=== PATIENT | female | born 1995 | race Caucasian/White ===

== ENCOUNTER 2020-06-03 12:46 | Emergency (ER) | payer OTHER, SELFPAY ==
--- NOTE | ~2020-06-03 | XR_ITS ---
EXAMINATION: XR chest 1V portable EXAM DATE: 06/03/2020 13:59 INDICATION: Cough. TECHNIQUE: Portable AP frontal chest x-ray was obtained. There is no prior study for comparison. FINDINGS: The lungs are clear. There are no pleural effusions. The cardiomediastinal silhouette is within normal limits. There is no pneumothorax suspected. The bones and soft tissues are unremarkab le. IMPRESSION: No acute cardiopulmonary findings. Reviewed, dictated and finalized at location B.
[2020-06-03 12:58] VITALS: BP 138/77; PULSE 98; RESP 17; TEMP 36.2; O2SAT 100
--- NOTE | 2020-06-03 14:08 | ED.GENADULT ---
HPI - General Adult General Chief complaint: Upper Respiratory Infection Stated complaint: trouble breathing Time Seen by Provider: 06/03/20 12:52 Source: patient Mode of arrival: ambulatory Limitations: no limitations History of Present Illness HPI narrative: Patient is a 24-year-old female who presents with 3 days duration of upper respiratory symptoms with history of asthma noting cough with slight congestion rhinorrhea denies sick contacts fever chills nausea vomiting has been using her home nebulizer and asthma medications with some improvement patient on arrival in no distress Related Data Home Medications Medication Instructions Recorded Confirmed albuterol sulfate 2 puff INHALATION QID PRN 06/03/20 dextroamphetamine-amphetamine 20 mg PO DAILY 06/03/20 [Adderall] Allergies Allergy/AdvReac Type Severity Reaction Status Date / Time No Known Allergies Allergy Verified 06/03/20 12:57 Review of Systems Review of Systems: All systems reviewed & are unremarkable except as noted in HPI and below PMFSH Past Medical History Medical History (Updated 06/03/20 @ 14:15 by Olegario Gonogra PA-C) Asthma Social History Social History Gender identity (if verbalized by the patient): Female Exam Narrative: Exam Narrative: GENERAL: Well-appearing, well-nourished, and in no acute distress. HEAD: Normocephalic, atraumatic. EYES: PERRLA and EOMI. ENT: Nares clear, no rhinorrhea or epistaxis. Mucous membranes moist. Oropharynx without tonsillar hypertrophy exudate or other lesions. NECK: Supple. No adenopathy or masses. CHEST: Clear to auscultation. No respiratory distress. No wheezes rales or rhonchi HEART: Regular rate and rhythm. No murmur heard. Normal peripheral pulses. ABDOMEN: Soft, nontender, nondistended EXTREMITIES: Normal range of motion. No edema. SKIN: Warm, dry, no rash. NEURO: No focal deficits. Alert and oriented x3. Cranial nerves II through XII grossly intact PSYCH: Normal mood and affect. Course Course Emergency Course: Patient in the room in no distress no high risk changes in the imaging felt appropriate for discharge home normal vital signs COVID testing pending Vital Signs Vital signs: Vital Signs Temperature 97.1 F L 06/03/20 12:58 Pulse Rate 98 06/03/20 12:58 Respiratory Rate 17 06/03/20 12:58 Blood Pressure 138/77 06/03/20 12:58 Pulse Oximetry 100 06/03/20 12:58 Temperature 97.1 F L 06/03/20 12:58 Pulse Rate 98 06/03/20 12:58 Respiratory Rate 17 06/03/20 12:58 Blood Pressure 138/77 06/03/20 12:58 Pulse Oximetry 100 06/03/20 12:58 Medical Decision Making MDM Narrative Medical decision making narrative: Patient in the room in no distress aware of case findings treatment plan diagnosis felt appropriate for outpatient reevaluation given reasons to return normal vital signs no pneumonia Vital Signs Vital Signs: Vital Signs Temperature 97.1 F L 06/03/20 12:58 Pulse Rate 98 06/03/20 12:58 Respiratory Rate 17 06/03/20 12:58 Blood Pressure 138/77 06/03/20 12:58 Pulse Oximetry 100 06/03/20 12:58 Temperature 97.1 F L 06/03/20 12:58 Pulse Rate 98 06/03/20 12:58 Respiratory Rate 17 06/03/20 12:58 Blood Pressure 138/77 06/03/20 12:58 Pulse Oximetry 100 06/03/20 12:58 Discharge Plan Discharge Clinical Impression: Upper respiratory infection Patient Disposition: Home, Self-Care Condition: Stable Instructions: Antibiotic Form, Upper Respiratory Infection (ED) Additional Instructions: Follow up with your primary care provider within 1-2 days to set up for reevaluation your COVID-19 test results. Go to ER for shortness of breath, difficulty breathing, chest pain, fever/chills, weakness, nauseau/vomitting, etc. or any other concerns. Self quarantine until you have received your COVID-19 results Take any prescribed medications as directed.
[2020-06-03] MEDS: predniSONE 20 MG TABLET 60 MG PO (14:10)
[2020-06-04 14:17] LABS: SARS-CoV-2 RNA PCR Negative
== END 2020-06-03 14:45 | disposition home or self-care (01) ==
PROVIDERS: Emergency Medicine Emergency Medical Services; Emergency Provider Emergency Medicine
DX: J06.9 Acute upper respiratory infection, unspecified (principal); J45.909 Unspecified asthma, uncomplicated; Z20.828 Contact with and (suspected) exposure to other viral communicable diseases
CPT/HCPCS: 71045; 87635; 99283; C9803; J7512; U0003

== ENCOUNTER 2020-11-05 16:18 | Emergency (ER) | payer OTHER, SELFPAY ==
[2020-11-05 17:30] VITALS: BP 127/100; PULSE 74; RESP 20; TEMP 35.7; O2SAT 100
--- NOTE | 2020-11-05 18:07 | PC.NURSE ---
. pt does not want to wait any longer. encourged to return for further problems. able to talk complete sentences.
== END 2020-11-05 20:20 | disposition left against medical advice (07) ==
LOC: ANHED 20:00
DX: J45.909 Unspecified asthma, uncomplicated (principal)
CPT/HCPCS: 99199

== ENCOUNTER 2020-11-05 18:24 | Emergency (ER) | payer OTHER, SELFPAY ==
[2020-11-05 18:42] VITALS: BP 133/98; PULSE 90; RESP 18; TEMP 36.5; O2SAT 100
--- NOTE | 2020-11-05 18:54 | ED.URI ---
HPI - URI/Sore Throat General Chief Complaint: Upper Respiratory Infection Stated Complaint: Cough,Headache Time Seen by Provider: 11/05/20 18:47 Source: patient and RN notes reviewed Mode of arrival: ambulatory Limitations: no limitations History of Present Illness HPI Narrative: Patient presents today complaining of a dry cough and headache since yesterday. History of asthma. Denies any additional symptoms to include fever, chills or sweats, body aches, shortness of breath or wheezing, sore throat or ear pain, loss of taste or smell. Denies any sick contacts. She has been using her inhaler and breathing treatments at home with very short-term relief. MD elicited complaint: cough Related Data Home Medications Medication Instructions Recorded Confirmed albuterol sulfate 2 puff INHALATION QID PRN 06/03/20 dextroamphetamine-amphetamine 20 mg PO DAILY 06/03/20 [Adderall] L norgest/e.estradiol-e.estrad 11/05/20 [Simpesse] fluticasone propionate [Flovent INHALATION 11/05/20 HFA] Allergies Allergy/AdvReac Type Severity Reaction Status Date / Time No Known Allergies Allergy Verified 06/03/20 12:57 Review of Systems Review of Systems: Narrative: CONSTITUTIONAL: Denies body aches, fever, chills, or sweats. EYES: Denies visual changes, redness, or discharge. ENT: Denies rhinorrhea, congestion, sore throat, or otalgia. CARDIOVASCULAR: Denies chest pain, palpitations, or edema. RESPIRATORY: + Cough. Denies shortness of breath or wheezing GASTROINTESTINAL: Denies abdominal pain, nausea, vomiting, or diarrhea. GENITOURINARY: Denies dysuria or hematuria. SKIN: Denies rash, itching, or wounds. MUSCULOSKELETAL: Denies back pain, joint pain, or myalgia. NEUROLOGIC: Denies numbness, tingling, or weakness. + Headache PSYCH: Denies depression or anxiety. [facility] Past Medical History Medical History (Updated 11/05/20 @ 19:35 by Carissa Cheney, [employer]ARD SUPERVIS[employer], ) Asthma Social History Social History Gender identity (if verbalized by the patient): Female Comments At time of signature, I have reviewed and agree with nursing past medical, surgical, social and family history unless otherwise noted. Please see nursing chart for further information. There is no relevant family history pertinent to the presenting complaint Exam Narrative: Exam Narrative: GENERAL: Well-appearing, well-nourished, and in no acute distress. HEAD: Normocephalic, atraumatic. EYES: EOMI. No redness or drainage. Conjunctivae normal. ENT: Mucous membranes pink and moist. Nares clear. No rhinorrhea. TMs normal bilaterally. Throat normal. Uvula midline. NECK: Normal AROM. Supple. No lymphadenopathy. CHEST: No respiratory distress. Clear to auscultation, but with somewhat decreased aeration throughout. HEART: Regular rate and rhythm. No murmur appreciated. Normal peripheral pulses. EXTREMITIES: Normal range of motion. No edema. SKIN: Warm, dry, no rash. Capillary refill normal. Normal skin turgor. NEURO: No focal deficits. Alert and oriented x3. Gait steady. PSYCH: Normal affect. No signs of depression or anxiety. Course Course Emergency Course: 1934- Patient states she feels better after Duoneb. Increased aeration noted upon repeat auscultation. Vital Signs Vital signs: Vital Signs Temperature 97.7 F 11/05/20 18:42 Pulse Rate 90 11/05/20 18:42 Respiratory Rate 18 11/05/20 18:42 Blood Pressure 133/98 H 11/05/20 18:42 Pulse Oximetry 100 11/05/20 18:42 Temperature 97.7 F 11/05/20 18:42 Pulse Rate 94 11/05/20 19:32 Respiratory Rate 16 11/05/20 19:32 Blood Pressure 133/98 H 11/05/20 18:42 Pulse Oximetry 96 11/05/20 19:32 Reviewed. Pt has been instructed to follow up with her PCP regarding her elevated blood pressure today. MDM - URI/Sore Throat Differential Diagnosis Differential diagnosis: Likely upper respiratory infection, otitis media, si
[2020-11-05] MEDS: IPRATROPIUM BR 0.02% INH SOLN 0.5 MG/2.5 ML VIAL INHALATION (19:06)
[2020-11-05] MEDS: ALBUTEROL SULFATE NEB 2.5 MG/3 ML INH INHALATION (19:06)
[2020-11-05 19:32] VITALS: PULSE 94; RESP 16; O2SAT 96
== END 2020-11-05 19:40 | disposition home or self-care (01) ==
PROVIDERS: Emergency Provider Nurse Practitioner
DX: J45.901 Unspecified asthma with (acute) exacerbation (principal); F90.9 Attention-deficit hyperactivity disorder, unspecified type
CPT/HCPCS: 94640; 99213; G0463

== ENCOUNTER 2021-04-21 12:49 | Emergency (ER) | payer OTHER, SELFPAY ==
[2021-04-21 13:07] VITALS: BP 118/78; PULSE 100; RESP 18; TEMP 36.7; O2SAT 100
[2021-04-21 13:10] VITALS: BP 118/78; PULSE 100; RESP 18; TEMP 36.7; O2SAT 100
--- NOTE | 2021-04-21 13:53 | ED.ASTHMA ---
HPI - Asthma General Chief Complaint: Asthma Stated Complaint: Asthma Time Seen by Provider: 04/21/21 13:53 Source: patient and RN notes reviewed Mode of arrival: ambulatory Limitations: no limitations History of Present Illness HPI Narrative: 25-year-old female with history of asthma presents with concern for asthma exacerbation. Reports since Sunday she has been using her rescue inhaler every 4 hours and also needing to use her nebulizer. Reports at baseline when she has not feeling ill she does not use her rescue inhaler on a daily basis. Reports she recently started using a controller medicine. She denies fever, bodies, chills, sweats. Reports nasal congestion started today. She denies any known sick contacts. MD complaint: asthma attack Related Data Home Medications Medication Instructions Recorded Confirmed albuterol sulfate 2 puff INHALATION QID PRN 06/03/20 dextroamphetamine-amphetamine 20 mg PO DAILY 06/03/20 [Adderall] L norgest/e.estradiol-e.estrad 11/05/20 [Simpesse] Allergies Allergy/AdvReac Type Severity Reaction Status Date / Time No Known Allergies Allergy Verified 04/21/21 13:07 Review of Systems Review of Systems: CONSTITUTIONAL: Denies malaise, chills, sweats, or fever. EYES: Denies visual changes, redness, or discharge. ENT: Reports rhinorrhea, congestion. Denies sinus pain, otalgia and sore throat. CARDIOVASCULAR: Denies chest pain, palpitations, or edema. RESPIRATORY: Reports cough, wheezing. Denies dyspnea. GASTROINTESTINAL: Denies abdominal pain, nausea, vomiting, diarrhea SKIN: Denies rash or itching. MUSCULOSKELETAL: Denies myalgia. NEUROLOGIC: Denies headache. All systems reviewed & are unremarkable except as noted in HPI and below PMFSH Past Medical History Medical History (Updated 04/21/21 @ 14:02 by Renee Brown NP) Asthma Social History Social History Gender identity (if verbalized by the patient): Female Comments At time of signature, agree with nursing past medical, surgical, social and family history. There is no relevant family history pertinent to the presenting complaint Exam Narrative: GENERAL: Well-appearing, well-nourished, and in no acute distress. HEAD: Normocephalic EYES: PERRLA, conjunctivae clear ENT: Nares clear, clear discharge. Mucous membranes moist. NECK: Supple. No lymphadenopathy CHEST: Clear to auscultation, breath sounds equal. No wheezing, rhonchi, rales, or stridor. No respiratory distress, speaks in full sentences. HEART: Regular rate and rhythm. No murmur heard. SKIN: Warm, dry, no rash. NEURO: Alert and oriented x3. PSYCH: Normal mood and affect Course Course Emergency Course: Patient is aware of diagnosis, understands and agrees to treatment plan. Anticipatory guidance given. Patient agrees to follow-up as directed and is aware of reasons to seek care at the emergency department. Portions of this record may have been created with voice recognition software Vital Signs Vital signs: Vital Signs Temperature 98.0 F 04/21/21 13:07 Pulse Rate 100 04/21/21 13:07 Respiratory Rate 18 04/21/21 13:07 Blood Pressure 118/78 04/21/21 13:07 Pulse Oximetry 100 04/21/21 13:07 Temperature 98.0 F 04/21/21 13:10 Pulse Rate 100 04/21/21 13:10 Respiratory Rate 18 04/21/21 13:10 Blood Pressure 118/78 04/21/21 13:10 Pulse Oximetry 100 04/21/21 13:10 Reviewed. MDM - Asthma MDM Narrative Medical decision making narrative: Differential diagnosis considered:Nunez virus, strep pharyngitis, allergic rhinitis, upper respiratory tract infection, sinusitis, rhinosinusitis, nasopharyngitis. viral pharyngitis, otitis media, otitis externa, pneumonia, bronchitis, viral cough syndrome, viral syndrome, and influenza. Exam findings show no acute concerns or changes; patient is non-toxic appearing and is in no distress. Patient is appropriate for outpatient
== END 2021-04-21 14:00 | disposition home or self-care (01) ==
PROVIDERS: Emergency Provider Nurse Practitioner
DX: J45.21 Mild intermittent asthma with (acute) exacerbation (principal)
CPT/HCPCS: 99213; G0463

== ENCOUNTER 2021-09-06 08:33 | Emergency (ER) | payer OTHER, SELFPAY ==
[2021-09-06] VITALS (7 sets, daily range): BP systolic 124–146; BP diastolic 67–92; PULSE 86–130; RESP 14–31; TEMP 36.7–37.3; O2SAT 98–100
--- NOTE | ~2021-09-06 | XR_ITS ---
EXAMINATION: XR chest 2V DATE: 09/06/2021 10:33 INDICATION: Shortness of breath. TECHNIQUE: Frontal and lateral views of the chest were obtained. COMPARISON: Chest single view 06/03/2020 FINDINGS: The chest demonstrates clear lungs without pneumonia, pleural effusion, or pneumothorax. Th e heart size is normal. IMPRESSION: 1. No acute cardiopulmonary disease. Reviewed, dictated and finalized at location B. [employer]
--- NOTE | 2021-09-06 10:05 | ED.ASTHMA ---
HPI - Asthma General Chief Complaint: Asthma Stated Complaint: my asthma is flaring up Time Seen by Provider: 09/06/21 09:15 Source: patient Mode of arrival: ambulatory Limitations: no limitations History of Present Illness HPI Narrative: Patient is a 26-year-old female complaining of asthma attack , describes been coughing and wheezing since yesterday. Patient states that she does have asthma and takes a nebulizer and an inhaler at home for it but today did not work, still having constant cough and wheezing. Patient denies any chest pain, abdominal pain, nausea, vomiting, diarrhea, fever or chills. Related Data Home Medications Medication Instructions Recorded Confirmed albuterol sulfate 2 puff INHALATION QID PRN 06/03/20 09/06/21 dextroamphetamine-amphetamine 20 mg PO DAILY 06/03/20 09/06/21 [Adderall] L norgest/e.estradiol-e.estrad 0.15 tablet PO HS 11/05/20 09/06/21 [Simpesse] fluticasone propionate [Flovent 110 mcg INHALATION DAILY 09/06/21 09/06/21 HFA] Allergies Allergy/AdvReac Type Severity Reaction Status Date / Time No Known Allergies Allergy Verified 09/06/21 08:58 Review of Systems Review of Systems: All systems reviewed & are unremarkable except as noted in HPI and below Constitutional: Constitutional: Denies body ache(s), Denies chills, Denies excessive sweating, Denies fatigue, Denies fever(s), Denies headache(s), Denies lethargy, Denies malaise, Denies weakness and Denies weight loss Eyes: Eyes: Denies blurry vision, Denies change in vision and Denies loss of vision ENT: Denies dizziness, Denies ear discharge, Denies headache(s), Denies lip swelling, Denies epistaxis, Denies nasal congestion, Denies neck pain, Denies throat swelling and Denies tongue swelling Cardiovascular: Cardiovascular: Denies chest pain, Denies chest pain at rest, Denies chest pain with activity, Denies diaphoresis, Denies rapid heart rate, Denies edema, Denies irregular heart rhythm, Denies lightheadedness and Denies palpitations Respiratory: Respiratory: Denies chest congestion and Denies hemoptysis Gastrointestinal: Gastrointestinal: Denies abdominal pain, Denies melena, Denies hematochezia, Denies diarrhea, Denies nausea, Denies vomiting and Denies hematemesis Musculoskeletal: Musculoskeletal: Denies abnormal gait, Denies deformity, Denies joint swelling, Denies limited range of motion, Denies neck pain and Denies numbness Neurologic: Denies Abnormal speech present, Denies abnormal gait, Denies confusion, Denies dizziness, Denies headache(s), Denies focal weakness, Denies loss of vision, Denies numbness, Denies Other visual disturbances, Denies Sensory deficit (Neuro) and Denies weakness Psychiatric: Psychiatric: Denies confusion, Denies depression, Denies auditory hallucinations, Denies homicidal ideation and Denies suicidal ideation Endocrine: Endocrine: Denies cold intolerance, Denies excessive sweating, Denies fatigue, Denies heat intolerance and Denies palpitations Hematologic/Lymphatic: Hematologic/Lymphatic: Denies easy bleeding and Denies easy bruising Allergic/Immunologic: Allergic/Immunologic: Denies lip swelling, Denies throat swelling and Denies tongue swelling PMFSH Past Medical History Medical History Asthma Social History Social History Gender identity (if verbalized by the patient): Female Comments Family history: None Social history: Non-smoker no EtOH or drug use Exam Const: General: cooperative, healthy appearing, comfortable, no acute distress, well developed, alert and awake; No confusion Orientation/consciousness: oriented to person, oriented to place, oriented to time, patient oriented x3 and No confusion Limitations: no limitations HENMT: Head: normal to inspection, normocephalic and atraumatic Ears: hearing grossly normal bilaterally, TM normal on the right and TM elise
[2021-09-06] MEDS: IPRATROPIUM BR 0.02% INH SOLN 0.5 MG/2.5 ML VIAL INHALATION (10:56)
[2021-09-06] MEDS: ALBUTEROL SULFATE NEB 2.5 MG/0.5 ML INH 5 MG INHALATION (10:56)
[2021-09-06] MEDS: methylPREDNISolone SOD SUCC 125 MG VIAL IV PUSH (11:10)
== END 2021-09-06 12:42 | disposition home or self-care (01) ==
PROVIDERS: Emergency Provider Emergency Medicine; PCP Family Medicine
DX: J45.901 Unspecified asthma with (acute) exacerbation (principal)
CPT/HCPCS: 71046; 81025; 94640; 96374; 99284; J2930

== ENCOUNTER 2021-12-13 16:21 | Emergency (ER) | payer OTHER, SELFPAY ==
[2021-12-13 16:31] VITALS: BP 132/81; PULSE 94; RESP 20; TEMP 36.3; O2SAT 100
--- NOTE | 2021-12-13 16:44 | ED.EYEPROB ---
HPI - Eye Problem General Chief complaint: Eye Problems Stated complaint: watery left eye Time Seen by Provider: 12/13/21 16:45 Source: patient and RN notes reviewed Mode of arrival: ambulatory Limitations: no limitations History of Present Illness HPI Narrative: 26-year-old female presents to the [facility] with complaints of tearing of her left eye for a couple weeks, got bad when she was at work today. No treatment prior to arrival. Has not talked to her primary care provider no blurry vision change in vision. MD chief complaint: other (Left eye tearing) Related Data Home Medications Medication Instructions Recorded Confirmed albuterol sulfate 2 puff INHALATION QID PRN 06/03/20 09/06/21 dextroamphetamine-amphetamine 20 mg PO DAILY 06/03/20 09/06/21 [Adderall] L norgest/e.estradiol-e.estrad 0.15 tablet PO HS 11/05/20 09/06/21 [Simpesse] fluticasone propionate [Flovent 110 mcg INHALATION DAILY 09/06/21 09/06/21 HFA] Allergies Allergy/AdvReac Type Severity Reaction Status Date / Time No Known Allergies Allergy Verified 09/06/21 08:58 Review of Systems Review of Systems: All systems reviewed & are unremarkable except as noted in HPI and below Constitutional: Constitutional: Reports no additional constitutional complaints, Denies chills and Denies fever(s) Eyes: Eyes: Reports as per HPI, Denies blind spots, Denies blurry vision, Denies change in vision, Reports eye discharge (Clear), Reports itchy eyes, Denies loss of vision, Denies photophobia and Denies spots in vision ENT: Reports system reviewed and no additional complaints, except as documented, Denies change in voice, Denies vertigo, Denies dizziness, Denies ear discharge, Denies facial pain, Denies headache(s), Denies lip swelling, Denies neck pain and Denies post nasal drip Comments: Tonsillar stone noted right tonsil Cardiovascular: Cardiovascular: Reports no additional cardiovascular complaints Respiratory: Respiratory: Reports no additional respiratory complaints Gastrointestinal: Gastrointestinal: Reports no additional gastrointestinal complaints Musculoskeletal: Musculoskeletal: Reports no additional musculoskeletal complaints Integumentary/Breasts: Skin/Breast: Reports system reviewed and no additional complaints, except as docu Neurologic: Reports system reviewed and no additional complaints, except as documented Psychiatric: Psychiatric: Reports no additional psychiatric complaints Allergic/Immunologic: Allergic/Immunologic: Reports no additional allergic/immunologic complaints [facility] Past Medical History Medical History Asthma Social History Social History Gender identity (if verbalized by the patient): Female Comments At the time of my signature, I reviewed and agree with the nursing past medical, surgical, social, and family history. There is no relevant family history pertinent to the patient complaint. Exam Const: General: healthy appearing, no acute distress and alert Nutritional Appearance: well nourished and obese Orientation/consciousness: patient oriented x3 Limitations: no limitations HENMT: Head: normal to inspection Ears: external ears normal, TM's normal bilaterally and TM normal on the left General nose exam: Normal external nose present and Normal nasal mucous membranes and turbinates present Face and sinus: normal facial exam Mouth: Yes Normal oral and palatal mucosa present Throat: posterior oropharynx normal, abnormal tonsil on the right pitting and other (tonsil stone noted the upper portion of the right tonsil); no erythema, no exudates and no hypertrophy and no uvular edema Eyes: Alignment and Position: alignment normal Periorbital: periorbital findings normal Eyelids: eyelids normal Conjunctivae: conjunctivae normal Cornea: corneas normal Pupils: Equal, round and reactive pupils present EO
== END 2021-12-13 16:59 | disposition home or self-care (01) ==
PROVIDERS: Emergency Provider Nurse Practitioner
DX: H10.12 Acute atopic conjunctivitis, left eye (principal); J35.8 Other chronic diseases of tonsils and adenoids; J45.909 Unspecified asthma, uncomplicated
CPT/HCPCS: 99213; G0463

== ENCOUNTER 2023-02-15 13:01 | Emergency (ER) | payer OTHER, SELFPAY ==
--- NOTE | ~2023-02-15 | US_ITS ---
EXAMINATION: US venous doppler LE RT DATE: 02/15/2023 14:41 INDICATION: Right lower limb pain TECHNIQUE: Carrasco scale images without and with compression and Doppler images of the right lower extre mity veins were obtained. COMPARISON: None FINDINGS: The right common femoral vein, profunda femoral vein, femoral vein, popliteal vein, peronea l trunk, posterior tibial veins, and greater saphenous vein are patent. IMPRESSION: 1. Patent right lower extremity veins. No evidence of deep venous thrombosis. Reviewed, dictated and finalized at location F.
--- NOTE | ~2023-02-15 | XR_ITS ---
XR hip RT 2V w AP pelvis DATE: 02/15/2023 14:43 INDICATION: Proximal right femur pain for 2 days TECHNIQUE: AP pelvis. AP and lateral views of right hip COMPARISON: None FINDINGS: Radiopaque sutures overlie the right labial soft tissues. No pelvic fracture or bone destruction is detected. Normal alignment at the pubic symphysis and sacro iliac joints. Hip joint spaces are symmetric and well preserved. No fracture, dislocation, avascular necrosis or bone destruction of the right hip. Minimal spurring o f the right femoral head consistent with slight right hip osteoarthritis. IMPRESSION: Slight right hip osteoarthritis Reviewed, dictated and finalized at location L.
[2023-02-15 13:05] VITALS: BP 134/87; PULSE 101; RESP 18; TEMP 36.3; O2SAT 100
--- NOTE | 2023-02-15 14:21 | ED.EXTPRO ---
HPI - Extremity Problem General Chief complaint: Extremity Problem,Nontraumatic Stated complaint: leg pain Time Seen by Provider: 02/15/23 13:55 History of Present Illness HPI Narrative: 27-year-old female reports for evaluation of right proximal femur pain that started about 4 to 5 days ago with associated swelling to her thigh. Patient does not recall an injury. States the pain is worse when she ambulates and has been increasingly worsening the past few days. She reports difficulty walking secondary to the pain. She describes the pain as a muscle spasm. Reports taking ibuprofen at midnight with improvement in symptoms. She denies rash, lesions, chest pain or shortness of breath, history of VTE, fever. She does take OCPs. 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 Related Data Home Medications Medication Instructions Recorded Confirmed albuterol sulfate 90 mcg/actuation 2 puff inhalation QID PRN 06/03/20 09/06/21 aerosol inhaler Shortness Of Breath dextroamphetamine-amphetamine 20 20 mg PO DAILY 06/03/20 09/06/21 mg tablet (Adderall) L norgest/E estradiol-E estrad 0.15 tablet PO HS 11/05/20 09/06/21 0.15 mg-30 mcg (84)/10 mcg(7) tabs,3mos (Simpesse) fluticasone propionate 110 110 mcg inhalation DAILY 09/06/21 09/06/21 mcg/actuation HFA aerosol inhaler (Flovent HFA) Allergies Allergy/AdvReac Type Severity Reaction Status Date / Time No Known Allergies Allergy Verified 02/15/23 13:02 Review of Systems Review of Systems: CONSTITUTIONAL: Denies fever, chills EYES: Denies visual changes, redness, or discharge. ENT: Denies rhinorrhea, congestion, sore throat, or otalgia. CARDIOVASCULAR: Denies chest pain, palpitations, or edema. RESPIRATORY: Denies cough or dyspnea. GASTROINTESTINAL: Denies abdominal pain, nausea, vomiting, or diarrhea. GENITOURINARY: Denies dysuria or hematuria. SKIN: Denies rash or itching. MUSCULOSKELETAL: See HPI NEUROLOGIC: Denies headache, numbness, dizziness, or weakness. PSYCHIATRIC: Denies anxiety or depression. [facility] Past Medical History Medical History Asthma Social History Social History Gender identity (if verbalized by the patient): Female Exam Narrative: GENERAL: Well-appearing, in no acute distress. HEAD: Normocephalic EYES: PERRLA ENT: Nares clear. Mucous membranes moist. Oropharynx without tonsillar hypertrophy exudate or other lesions. NECK: Supple. CHEST: No respiratory distress. Clear to auscultation, no adventitious breath sounds. HEART: Regular rate and rhythm. No murmur heard. Normal peripheral pulses. ABDOMEN: Soft, nontender, normal active bowel sounds. EXTREMITIES: RLE: Tenderness to the anterior lateral proximal femur with no tenderness to remainder of lower extremity or pelvis. No edema appreciated. Full range of motion of hip, knee, ankle. DP pulse 2+. Sensation intact. No overlying skin changes. Patient ambulatory with a limp. SKIN: Warm, dry, no rash. NEURO: No focal deficits. Alert and oriented x3. PSYCH: Normal mood and affect. Course Vital Signs Vital signs: Vital Signs Temperature 97.4 F L 02/15/23 13:05 Pulse Rate 101 H 02/15/23 13:05 Respiratory Rate 18 02/15/23 13:05 Blood Pressure 134/87 02/15/23 13:05 Pulse Oximetry 100 02/15/23 13:05 Temperature 97.4 F L 02/15/23 13:05 Pulse Rate 98 02/15/23 16:02 Respiratory Rate 20 02/15/23 16:02 Blood Pressure 135/67 02/15/23 16:02 Pulse Oximetry 98 02/15/23 16:02 MDM - Extremity (Nontraumatic) MDM Narrative Medical decision making narrative: 27-year-old female reports for evaluation of right proximal femur pain that started about 4 to 5 days ago with associated subjective swelling to her thigh. Vital stable, she is afebrile.
[2023-02-15] MEDS: IBUPROFEN 600 MG TABLET PO (14:47)
[2023-02-15] MEDS: ACETAMINOPHEN 500 MG TABLET 1000 MG PO (14:47)
[2023-02-15 15:04] LABS: Basophils Percent Auto 0.4 % (0.2-1.2); Eosinophils Absolute Auto 0.1 K/mm3 (0-0.3); Eosinophils Percent Auto 0.8 % (0-4.4); Hematocrit 39.1 % (37.0-47.0); Hemoglobin 11.9 g/dL (12.0-15.0); Immature Granulocyte Absolute 0.02 K/mm3 (0.00-0.031); Immature Granulocyte Percent A 0.3 % (0-0.5); Immature Platelet Fraction Pct 5.6 % (0.9-11.2); Lymphocytes Absolute Auto 2.74 K/mm3 (0.9-3.2); Lymphocytes Percent Auto 36.5 % (18.3-44.2); Mean Corpuscular HGB Conc 30.4 g/dl (32-36); Mean Corpuscular Hemoglobin 21.3 pg (26-34); Mean Corpuscular Volume 69.8 fl (80-100); Mean Platelet Volume 11.6 fl (7.4-10.4); Monocytes Absolute Auto 0.4 K/mm3 (0.1-0.6); Monocytes Percent Auto 4.8 % (2.6-8.5); Neutrophils Absolute Auto 4.3 K/mm3 (1.3-6.7); Neutrophils Percent Auto 57.2 % (45.5-73.1); Platelet Count Result 338 k/mm3 (150-375); Red Cell Distribution Width 16.1 % (11.5-14.5); White Blood Count 7.5 K/mm3 (4.5-10.0)
[2023-02-15 15:11] LABS: INR 0.9; Prothrombin Time 12.9 Seconds (11.1-14.7)
[2023-02-15 15:12] LABS: Partial Thromboplastin Time 25.5 SECONDS (22.3-36.8)
[2023-02-15 15:17] LABS: Alanine Aminotransferase 27 U/L (6-35); Albumin Level 4.3 g/dL (3.5-5.1); Alkaline Phosphatase 88 U/L (38-126); Anion Gap 6 mmol/L (8-16); Aspartate Amino Transferase 32 U/L (14-36); Bilirubin,Total 0.7 mg/dL (0.2-1.3); Blood Urea Nitrogen 13 mg/dL (7-17); Calcium 9.2 mg/dL (8.4-10.2); Carbon Dioxide 24 mmol/L (22-30); Chloride 106 mmol/L (98-107); Estimated CRCL calculation 135 ml/min; Estimated Glomerular Filt Rate > 60; Glucose 74 mg/dL (65-110); Magnesium 2.1 mg/dL (1.6-2.3); Potassium 4.9 mmol/L (3.4-5.0); Sodium 136 mmol/L (137-145)
[2023-02-15 15:27] LABS: Anisocytosis 1+ (NORMAL); Hypochromasia 1+ (NORMAL); Microcytosis 1+ (NORMAL); Ovalocytes 1+ (NORMAL); Platelet Estimate Adequate (Adequate)
[2023-02-15 15:28] LABS: Schistocytes None Seen (NORMAL)
[2023-02-15 16:02] VITALS: BP 135/67; PULSE 98; RESP 20; O2SAT 98
== END 2023-02-15 16:05 | disposition home or self-care (01) ==
PROVIDERS: Emergency Provider Physician Assistant; PCP Family Medicine
DX: M79.651 Pain in right thigh (principal); J45.909 Unspecified asthma, uncomplicated; M16.11 Unilateral primary osteoarthritis, right hip
CPT/HCPCS: 36415; 73502; 80053; 83735; 84100; 85025; 85055; 85610; 85730; 93971; 99284; A9270

== ENCOUNTER 2023-06-10 20:49 | Emergency (ER) | payer OTHER, SELFPAY ==
--- NOTE | ~2023-06-10 | XR_ITS ---
EXAMINATION: XR chest 2V Exam Date/Time: 06/10/2023 21:15 CDT HISTORY: cough, hx asthma Comparison: 09/06/2021. RESULT: Lines, tubes, and devices: None. Lungs and pleura: Clear. Cardiomediastinal silhouette: Stable. Other: No acute osseous or upper abdominal finding. IMPRESSION: No acute cardiopulmonary process. Reviewed, dictated and finalized at location K.
[2023-06-10 20:59] VITALS: BP 140/88; PULSE 91; RESP 18; TEMP 36.1; O2SAT 100
[2023-06-10 21:51] LABS: Influenza A QL RT-PCR Negative (Negative); Influenza B QL RT-PCR Negative (Negative); SARS-CoV-2 RNA PCR Negative (Negative)
[2023-06-11 01:44] VITALS: BP 139/87; PULSE 98; RESP 20; TEMP 36.4; O2SAT 100
[2023-06-11 02:15] VITALS: O2SAT 99
[2023-06-11 02:19] VITALS: BP 144/93; PULSE 75; RESP 20; O2SAT 99
[2023-06-11] MEDS: LEVALBUTEROL NEB 1.25 MG/3 ML 2.5 MG INHALATION (02:52)
[2023-06-11] MEDS: IPRATROPIUM BR 0.02% INH SOLN 0.5 MG/2.5 ML VIAL 1.5 MG INHALATION (02:53)
[2023-06-11 02:56] VITALS: PULSE 87; RESP 18
--- NOTE | 2023-06-11 03:05 | ED.ASTHMA ---
HPI - Asthma General Chief Complaint: Asthma Stated Complaint: Asthma Time Seen by Provider: 06/11/23 02:49 History of Present Illness HPI Narrative: Patient presents to the emergency department with an asthma exacerbation. States she started feeling ill a week ago. Her cough and shortness of breath have gradually worsened. Home albuterol inhaler and nebulizer is not helping. She has a headache from the coughing. Denies fevers and chills. Denies body aches. She is accompanied by her mother who contributes to the history. Patient is currently getting a breathing treatment Related Data Home Medications Medication Instructions Recorded Confirmed albuterol sulfate 90 mcg/actuation 2 puff inhalation QID PRN 06/03/20 09/06/21 aerosol inhaler Shortness Of Breath dextroamphetamine-amphetamine 20 20 mg PO DAILY 06/03/20 09/06/21 mg tablet (Adderall) L norgest/E estradiol-E estrad 0.15 tablet PO HS 11/05/20 09/06/21 0.15 mg-30 mcg (84)/10 mcg(7) tabs,3mos (Simpesse) fluticasone propionate 110 110 mcg inhalation DAILY 09/06/21 09/06/21 mcg/actuation HFA aerosol inhaler (Flovent HFA) Allergies Allergy/AdvReac Type Severity Reaction Status Date / Time No Known Allergies Allergy Verified 06/11/23 02:18 Review of Systems Review of Systems: Review of systems negative except what is documented in the [facility] Past Medical History Medical History Asthma Social History Social History Gender identity (if verbalized by the patient): Female Exam Narrative: GENERAL: Well-appearing, well-nourished, and in no acute distress. HEAD: Normocephalic, atraumatic. EYES: PERRLA and EOMI. ENT: Nares clear, no rhinorrhea or epistaxis. Mucous membranes moist. NECK: Supple. CHEST: Clear to auscultation. No respiratory distress. HEART: Regular rate and rhythm. ABDOMEN: Soft, nontender, nondistended. EXTREMITIES: Normal range of motion. No edema. SKIN: Warm, dry, no rash. NEURO: No focal deficits. Alert and oriented x3. PSYCH: Normal mood and affect. Course Vital Signs Vital signs: Vital Signs Temperature 36.1 C L 06/10/23 20:59 Pulse Rate 91 06/10/23 20:59 Respiratory Rate 18 06/10/23 20:59 Blood Pressure 140/88 06/10/23 20:59 Pulse Oximetry 100 06/10/23 20:59 Oxygen Delivery Room Air 06/10/23 20:59 Temperature 36.4 C 06/11/23 01:44 Pulse Rate 87 06/11/23 02:56 Respiratory Rate 18 06/11/23 02:56 Blood Pressure 144/93 H 06/11/23 02:19 Pulse Oximetry 99 06/11/23 02:19 Oxygen Delivery Room Air 06/11/23 02:15 MDM - Asthma MDM Narrative Medical decision making narrative: Vital signs stable. Patient is 100% on room air. Lungs are clear to auscultation. Afebrile. Chest x-ray negative for infiltrates. COVID-negative. Will DC with prednisone and Tessalon Perles Lab Data Labs: Lab Results 06/10/23 Range/Units 21:07 Influenza A (RT-PCR) Negative (Negative) Influenza B (RT-PCR) Negative (Negative) SARS-CoV-2 RNA (RT-PCR) Negative (Negative) Discharge Plan Discharge Clinical Impression: Asthma with acute exacerbation Qualifiers: Asthma severity: unspecified severity Asthma persistence: unspecified Qualified Code(s): J45.901 - Unspecified asthma with (acute) exacerbation Patient Disposition: Home, Self-Care Condition: Stable Instructions: Asthma (ED) Prescriptions: New azithromycin 250 mg tablet 250 mg PO DAILY 4 Days Qty: 4 0RF Rx Instructions: start on day 2 of therapy prednisone 50 mg tablet 50 mg PO DAILY Qty: 4 0RF benzonatate 100 mg capsule 100 mg PO TID PRN (Reason: cough) Qty: 20 0RF No Action L norgest/e.estradiol-e.estrad [Simpesse] 0.15 mg-30 mcg (84)/10 mcg (7) tablets,dose pack,3 month 0.15 tablet PO HS erythromycin 5 mg/gram (0.5 %) ointment
[2023-06-11] MEDS: AZITHROMYCIN 250 MG TABLET 500 MG PO (03:44)
[2023-06-11] MEDS: predniSONE 20 MG TABLET 60 MG PO (03:44)
[2023-06-11] MEDS: BENZONATATE 100 MG CAPSULE PO (03:44)
[2023-06-11 03:50] VITALS: BP 153/92; PULSE 88; RESP 21; O2SAT 99
== END 2023-06-11 03:52 | disposition home or self-care (01) ==
PROVIDERS: Physician Assistant; Emergency Provider Emergency Medicine; PCP Family Medicine
DX: J45.901 Unspecified asthma with (acute) exacerbation (principal); Z20.822 Contact with and (suspected) exposure to COVID-19
CPT/HCPCS: 71046; 87636; 94640; 99283; A9270; J7512

== ENCOUNTER 2024-11-22 18:40 | Emergency (ER) | payer OTHER, SELFPAY ==
[2024-11-22 18:52] VITALS: BP 147/91; PULSE 111; RESP 20; TEMP 36.6; O2SAT 100
[2024-11-22 19:05] VITALS: PULSE 111; RESP 20; O2SAT 100
--- NOTE | 2024-11-22 19:16 | ED.ASTHMA ---
HPI - Asthma General Chief Complaint: Asthma Stated Complaint: Asthma Time Seen by Provider: 11/22/24 19:16 Source: patient Mode of arrival: ambulatory Limitations: no limitations History of Present Illness HPI Narrative: 29 yo F with hx of asthma presents with c/o dry cough, SOB and chest tightness getting progressively worse over 1 wk. States asthma acting up with weather changes . Afebrile. Gave herself a breathing treatment prior to going into work this morning. all systems reviewed and negative except as noted above. Related Data Home Medications ?Medication ?Instructions ?Recorded ?Confirmed ?Last Taken ?Type albuterol sulfate 90 mcg/actuation 2 puff inhalation QID PRN 06/03/20 09/06/21 09/06/21 History aerosol inhaler Shortness Of Breath dextroamphetamine-amphetamine 20 20 mg PO DAILY 06/03/20 09/06/21 09/05/21 History mg tablet (Adderall) L norgest/E estradiol-E estrad 0.15 tablet PO HS 11/05/20 09/06/21 09/05/21 History 0.15 mg-30 mcg (84)/10 mcg(7) tabs,3mos (Simpesse) mometasone-formoterol HFA 200 inhalation 11/22/24 Unknown History mcg-5 mcg/actuation aerosol inhaler (Dulera) Allergies Allergy/AdvReac Type Severity Reaction Status Date / Time No Known Allergies Allergy Verified 11/22/24 18:47 Review of Systems Review of Systems: CONSTITUTIONAL: Denies fever, chills, or sweats. EYES: Denies visual changes, redness, or discharge. ENT: Denies rhinorrhea, congestion, sore throat, or otalgia. CARDIOVASCULAR: Denies chest pain, palpitations, or edema. RESPIRATORY: Reports dry nonproductive cough , chest tightness and shortness of breath with exertion. GASTROINTESTINAL: Denies abdominal pain, nausea, vomiting, or diarrhea. GENITOURINARY: Denies dysuria or hematuria. SKIN: Denies rash or itching. MUSCULOSKELETAL: Denies back pain, joint pain, or myalgia. NEUROLOGIC: Denies headache, numbness, or weakness. PSYCHIATRIC: Denies anxiety or depression. All other systems reviewed are negative, except as documented in HPI. [facility] Past Medical History Medical History Asthma Social History Social History Gender identity (if verbalized by the patient): Female Comments At time of signature, agree with nursing past medical, surgical, social and family history. There is no relevant family history pertinent to the presenting complaint. Exam Narrative: GENERAL: This is a well-nourished, well-developed patient, in no apparent distress. HEAD: normocephalic, atraumatic. EYES: PERRL. Sclera clear/white. Vision is grossly intact. EARS: External ears normal, auditory canals clear and without drainage, TMs normal without perforation. Hearing grossly intact. NOSE: External nose normal with no obvious nasal discharge, nares without redness, no rhinorrhea. THROAT: Mucous membranes moist, posterior pharynx clear. NECK: Neck supple, non-tender without lymphadenopathy, masses or thyromegaly. CARDIOVASCULAR: Regular rate and rhythm without murmurs, gallops, or rubs. RESPIRATORY: Decreased throughout all lung green[place]. Breath sounds equal bilaterally. No wheezes, rales, or rhonchi. SKIN: warm, Dry, intact with no suspicious lesions or rash, good texture and turgor. NEURO: awake, alert, and oriented to person, place and time. There were no obvious focal neurologic abnormalities. EXTREMITIES: No joint tenderness, effusion, or edema noted. Course Course Level of Care: Express Care Visit Reevaluation(s) Reevaluation #1: patient reports chest tightness improved after DuoNeb. Lungs clear to auscultation, no wheezing. Vital Signs Vital signs: Vital Signs Temperature 36.6 C 11/22/24 18:52 Pulse Rate 111 H 11/22/24 18:52 Respiratory Rate 20 11/22/24 18:52 Blood Pressure 147/91 H 11/22/24 18:52 Pulse Oximetry 100 11/22/24 18:52 Oxygen Delivery Room Air 11/22/24 18:52 Temperature 36.6 C 11/22/24 18:52 Pulse Rate 111 H 11/22/24 19:05 Respiratory Rate 20 11/22/24 19:05 Blood Pressure 147/91 H 11/22/24 18:52 Pulse Oximetry 100 11/22/24 19:05 Oxygen Delivery Room Air 11/22/24 19:05 Reviewed MDM - Asthma MDM Narrative Medical decision making narrative: Patient is well-appearing, nontoxic. Lungs clear to auscultation at discharge. Will treat with prednisone burst. Recommend she continue inhalers. Oxygen saturation 100%. Please be advised this is a medical document. It is intended for [id number] communication. It is written in medical language and may contain unfamiliar abbreviations or verbiage. Medical documents are intended to carry relevant information, facts as evident, and the clinical opinion of the practitioner at the time of the encounter. This report may have been done utilizing a voice recognition system. Attempts have been made to correct errors. However, there may be uncorrected grammatical, spelling, and recognition errors present. The file time of this note does not necessarily represent the time of service. Discharge Plan Discharge Clinical Impression: Asthma with acute exacerbation Patient Disposition: Home, Self-Care Condition: Stable Instructions: Antibiotic Form, Asthma (ED) Additional Instructions: Continue using inhalers as prescribed. Give herself a breathing treatment every 4-6 hours as needed for cough, wheezing, chest tightness, shortness of breath. Start prednisone tomorrow morning. See your doctor if symptoms are not improving. If you are having difficulty breathing go to the ER. Patient Language: Ghanaian Prescriptions: New prednisone 20 mg tablet 40 mg PO DAILY 5 Days Qty: 10 0RF No Action L norgest/e.estradiol-e.estrad [Simpesse] 0.15 mg-30 mcg (84)/10 mcg (7) tablets,dose pack,3 month 0.15 tablet PO HS Dulera 200-5 mcg/actuation HFA aerosol inhaler INHALATION dextroamphetamine-amphetamine [Adderall] 20 mg Tablet 20 mg PO DAILY albuterol sulfate 90 mcg/actuation Hfa Aerosol Inhaler 2 puff INHALATION QID PRN (Reason: Shortness Of Breath) Follow-up/Referrals: Fidencio,Loreta Etienne MD [Primary Care Provider] - Stand Alone Forms: Work/School Release IP Time of Disposition: 19:52
[2024-11-22] MEDS: predniSONE 20 MG TABLET 40 MG PO (19:33)
[2024-11-22] MEDS: IPRATROPIUM 0.5 MG/ALBUTEROL SULFATE 2.5 MG AMPUL.NEB 3 ML INHALATION (19:33)
== END 2024-11-22 20:00 | disposition home or self-care (01) ==
PROVIDERS: Emergency Provider Nurse Practitioner Family; PCP Family Medicine
DX: J45.901 Unspecified asthma with (acute) exacerbation (principal)
CPT/HCPCS: 94640; 99213; G0463; J7512